=== PATIENT | female | born 1950 | race Caucasian/White ===

== ENCOUNTER 2016-05-27 09:05 | Emergency (ER) | payer MEDICARE, OTHER ==
[~2016-05-27] VITALS: Ht 154.9 cm; Wt 51.0 kg
[~2016-05-27 09:05] MED LIST: ALPR.5 PO; ASPI81CH CHEW; EXFO5TAB PO; LACTCAP8 PO; NAPR500T PO; ROBA500T PO; SIMV20TA PO
[2016-05-27 09:13] VITALS: BP 158/91; PULSE 98; RESP 16; TEMP 98.3; O2SAT 97
[2016-05-27] MEDS ORDERED: LATA0.002 EACH EYE (09:30)
[2016-05-27] MEDS ORDERED: OMEGCAP PO (09:30)
--- NOTE | 2016-05-27 09:51 | PD ---
HPI Chief Complaint: Edema Time Seen by Provider: 09:18 Travel History International Travel<30 days: No Contact w/Intl Traveler<30days: No Traveled to known affect area: No History of Present Illness HPI 65 year-old woman who presents to the emergency department complaining of swelling in her left leg. States she first noticed it about a week or so ago. She did have a pretty long car trip about 2 weeks ago. 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 She saw her primary doctor here and they were to watch it. They did discuss an ultrasound that point. She's never had a blood clot before. She otherwise very healthy. States she has arthritis in her knee but never really bothers her. She notices swelling anterior to the knee and a little bit in the calf. Today she noticed that it was still swollen this morning and so she wanted to get it looked at again. It is not really that painful. She does have peripheral vascular disease. She otherwise has been feeling generally well and healthy. History Past Medical History Narrative Medical Hypertension hyperlipidemia Anxiety Mitral valve prolapse Osteoarthritis Peripheral vascular disease Rayanuds Tetanus Vaccination: < 5 Years Influenza Vaccination: Yes Social History Alcohol Use: Yes (1X WEEK) Tobacco Use: No Allergies-Medications (Allergen,Severity, Reaction): Coded Allergies: No Known Allergies (Unverified , 05/27/16) Reported Meds & Prescriptions Reported Meds & Active Scripts Active Naproxen 500 Mg Tab 500 Mg PO BID 7 Days Reported Latanoprost Opth Drops (Latanoprost) 0.005% Drops 1 Drop EACH EYE HS Refrigerate until opened. [place]-3 Fish Oil/Vitamin (Fish Oil-Cholecalciferol) 1,000-1,000 Mg Cap 1 Cap PO BID Probiotic (Lactobacillus Acidophilus) 1 Cap Cap 1 Cap PO TIDAC Exforge (Amlodipine-Valsartan) 5-160 Mg Tab 1 Tab PO DAILY Aspirin 81 Mg Chew 81 Mg CHEW DAILY Xanax (Alprazolam) 0.5 Mg Tab 0.5 Mg PO HS Simvastatin 20 Mg Tab 20 Mg PO MWF Review of Systems Except as stated in HPI: all other systems reviewed are Neg Physical Exam Narrative GENERAL: Well-appearing 65 year-old woman, no acute distress. SKIN: Warm and dry. CARDIOVASCULAR: Regular rate and rhythm. No murmur appreciated. RESPIRATORY: No accessory muscle use. Clear to auscultation. Breath sounds equal bilaterally. GASTROINTESTINAL: Abdomen soft, non-tender, nondistended. Hepatic and splenic margins not palpable. MUSCULOSKELETAL: No obvious deformities. There is some asymmetry with swelling of the left leg. There is no real calf tightness or tenderness. There is some fullness to the popliteal fossa that could suggest a Medina cyst. Good pulses. No edema. NEUROLOGICAL: Awake and alert. No obvious cranial nerve deficits. Motor grossly within normal limits. Normal speech. Data Data Last Documented VS Vital Signs Date Time Temp Pulse Resp B/P Pulse Ox O2 Delivery O2 Flow Rate FiO2 05/27/16 09:23 106 05/27/16 09:13 98.3 16 158/91 97 Orders Us Leg Venous Doppler (05/27/16 ) MDM Medical Decision Making Medical Screen Exam Complete: Yes Emergency Medical Condition: Yes Interpretation(s) Doppler ultrasound: Negative. Differential Diagnosis DVT, Medina cyst, dependent swelling, venous insufficiency, other Narrative Course Medical decision making INITIAL: A 65-year-old woman presents emergent from small leg swelling ongoing for the past week or so. She is some fullness in the popliteal fossa and this may be related to a Medina cyst or some prepatellar bursitis. She does have some asymmetry in the size of the legs and given her recent travel history will we will get an ultrasound to look for DVT. Otherwise recommend supportive treatment and outpatient follow-up. Diagnosis Primary Impression: Left knee pain Qualified Code: M25.562 - Acute pain of left knee Additional Instructions: Use Tylenol or ibuprofen as a for pain. Keep leg elevated as much as possible when not walking. Follow-up with your primary doctor in the next 2-4 days for repeat evaluation if you're not feeling completely well. Med/Other Pt SpecificInfo: No Change to Meds Disposition: 01 DISCHARGE HOME Condition: Stable Leo Martell MD May 27, 2016 09:51
--- NOTE | 2016-05-27 10:26 | RADHPO ---
EXAM DATE/TIME: 05/27/2016 10:09 [facility] COMPARISON: No previous studies available for comparison. INDICATIONS : Left leg swelling. MEDICAL HISTORY : Hypercholesterolemia. Hypertension. Mitral valve disorder. Glaucoma. Raynaud's. SURGICAL HISTORY : Hysterectomy. Kidney surgery. ENCOUNTER: Initial ACUITY: 1 day PAIN SCORE: 4/10 LOCATION: Left leg. TECHNIQUE: Venous ultrasound of the leg was performed from the inguinal ligament to the proximal calf. Real-milan e, color Doppler and spectral tracing, compression and augmentation techniques were used. FINDINGS: There is normal compressibility of the deep venous system from the inguinal region to the proximal ca lf. No echogenic clot is seen in the lumen of the common femoral, femoral, popliteal, and posterior tibial veins. There is a normal response of the venous system to proximal and distal augmentation an d respiration. CONCLUSION: Negative for deep venous thrombosis. . Abelino Garcia MD FACR on May 27, 2016 at 10:24 Board Certified Radiologist. This report was verified electronically.
[2016-05-27 11:08] VITALS: BP 147/89; PULSE 86; RESP 16; O2SAT 98
== END 2016-05-27 11:13 | disposition home or self-care (01) ==
LOC: PHED 09:05
DX: M25.562 Pain in left knee (principal); I73.9 Peripheral vascular disease, unspecified; R60.0 Localized edema
CPT/HCPCS: 93971